=== PATIENT | male | born 1985 ===

== ENCOUNTER 2018-10-22 16:43 | Emergency (ER) | payer MEDICAID ==
[2018-10-22 16:43] VITALS: BMI 27.1
[2018-10-22] MEDS ORDERED: Hydrogen Peroxide 237 ML SOL TP ONE (17:50)
--- NOTE | 2018-10-22 18:08 | ED PDOC ---
HPI: Chest Pain Time Seen by Provider: 10/22/18 17:20 Chief Complaint (Nursing): Chest Pain Chief Complaint (Provider): Chest pain History Per: Patient History/Exam Limitations: no limitations Additional Complaint(s): 33 y/o male, with a history of HIV since , presents to the ER with chest pain. Patient states for the last few months, he has been having frequent chest pain and other viral symptoms. He states, today, pain is in the middle of the chest. Patient reports he woke up with it. He states pain is not associated with palpitations, movement, or deep breaths. He states for the last few days, he has also had congestion and feeling of fullness in the right ear. Patient states he has had multiple ear surgeries as a child. PMD: none provided Past Medical History Reviewed: Historical Data, Nursing Documentation, Vital Signs Primary Care Provider: Kyrie Cruz - Medical History PMH: Anxiety, Bronchitis (5 yrs), Fractures (Jaw 2011 wired), HIV, Hyperlipidemia Denies: Chronic Kidney Disease - Surgical History Other surgeries: Ear surgeries - Family History Family History: States: Unknown Family Hx - Home Medications Home Medications: Ambulatory Orders Medication Instructions Recorded Darunavir [Prezista] 800 mg PO DAILY 06/28/15 Emtricitabine/Tenofovir [Truvada 1 tab PO DAILY 06/28/15 200 mg-300 mg Tablet] Oxycodone HCl/Acetaminophen 1 tab PO Q6 PRN 06/28/15 [Percocet 5-325 mg Tablet] Ritonavir [Norvir] 100 mg PO DAILY 06/28/15 Ciprofloxacin 500 mg PO BID #21 ml 07/02/15 Doxycycline Hyclate 100 mg PO BID #21 cap 07/02/15 Cyclobenzaprine [Cyclobenzaprine 10 mg PO BID #14 tab 10/24/16 HCl] Ibuprofen [Motrin] 400 mg PO Q6 #30 tab 10/24/16 Darunavir [Prezista] 800 mg PO DAILY 12/02/16 Emtricitabine/Tenofovir Diso 1 tab PO DAILY 12/02/16 [Truvada 200 MG-300 MG] Ritonavir [Norvir] 100 mg PO DAILY 12/02/16 Alprazolam [Xanax] 0.5 mg PO PRN PRN 12/03/16 Non-Formulary 1 ea .ROUTE Q6 #1 ea 08/02/17 Acetaminophen/Butalbital/Caf 1 tab PO TID PRN #20 tab 02/24/18 [Fioricet] Ondansetron ODT [Zofran ODT] 1 odt PO Q6 PRN #20 odt 02/24/18 Naproxen [Naprosyn] 500 mg PO BID PRN #20 tablet 03/06/18 Ciprofloxacin HCl [Cipro] 500 mg PO BID 7 Days tab 05/09/18 Ibuprofen [Motrin] 600 mg PO TID 7 Days tab 05/09/18 Metronidazole [Flagyl] 500 mg PO TID 7 Days tablet 05/09/18 Dicyclomine [Bentyl] 20 mg PO Q12 PRN #20 tab 05/16/18 Cyclobenzaprine [Cyclobenzaprine 10 mg PO Q8 PRN 5 Days tab 08/01/18 HCl] Ibuprofen [Motrin Tab] 800 mg PO Q6 PRN 7 Days tab 08/01/18 Methylprednisolone [Medrol Dose 4 mg PO DAILY #21 mg 08/01/18 Pack (21 tabs)] Cetirizine HCl/Pseudoephedrine 1 each PO BID #60 tab.er.12h 10/22/18 [Zyrtec-D Tablet] Fluticasone Nasal [Flonase] 1 actuation NS DAILY #1 spr 10/22/18 - Allergies Allergies/Adverse Reactions: Allergies Allergy/AdvReac Type Severity Reaction Status Date / Time Penicillins Allergy Intermediate ITCHING Verified 10/22/18 16:53 Review of Systems ROS Statement: Except As Marked, All Systems Reviewed And Found Negative ENT: Positive for: Nose Congestion, Other (Fullness in right ear) Cardiovascular: Positive for: Chest Pain. Negative for: Palpitations Respiratory: Negative for: Shortness of Breath Physical Exam - Reviewed Nursing Documentation Reviewed: Yes Vital Signs Reviewed: Yes - Physical Exam Appears: Positive for: No Acute Distress Head Exam: Positive for: ATRAUMATIC, NORMOCEPHALIC Skin: Positive for: Normal Color, Warm, Dry Eye Exam: Positive for: Normal appearance ENT: Positive for: Other (Impacted cerumen in right ear with excoriations to the external ear canal. left ear normal) Neck: Positive for: Normal, Painless ROM Cardiovascular/Chest: Positive for: Regular Rate, Rhythm Respiratory: Positive for: Normal Breath Sounds. Negative for: Wheezing, Respiratory Distress Extremity: Positive for: Normal ROM Neurological/Psych: Positive for: Awake, Alert, Normal Tone - Laboratory Results Result Diagrams: 10/22/18 18:33 10/22/18 18:33 Medical Decision Making Medical Decision Making: Initial Impression: Workup for chest pain with congestion and ear fullness consistent with allergies Initial Plan: --Cardiac workup --Hydrogen peroxide in right ear to break up cerumen --reevaluate patient 18:55 Labs normal and Chest X-ray normal. Scribe Attestation: Documented by Giacomo Tellez acting as a scribe for Elda Brewster MD. Provider Scribe Attestation: All medical record entries made by the Scribe were at my direction and personally dictated by me. I have reviewed the chart and agree that the record accurately reflects my personal performance of the history, physical exam, medical decision making, and the department course for this patient. I have also personally directed, reviewed, and agree with the discharge instructions and disposition. Disposition - Clinical Impression Clinical Impression: Atypical chest pain, Seasonal allergies - Disposition Disposition Time: 18:55 Condition: IMPROVED Prescriptions: Cetirizine HCl/Pseudoephedrine [Zyrtec-D Tablet] 1 each PO BID #60 tab.er.12h Fluticasone Nasal [Flonase] 1 actuation NS DAILY #1 spr Instructions: Seasonal Allergies in Adults, Chest Pain That Is Not Caused by the Heart (DC) Forms: [employer] (Mongolian) Print Language: MOHAWK
[2018-10-22] MEDS ORDERED: Hydrogen Peroxide 3% Soln (480ml) TP ONE (18:21)
--- NOTE | 2018-10-22 18:27 | RAD ---
Date of service: 10/22/2018 HISTORY: cough COMPARISON: 07/31/2018 TECHNIQUE: Chest PA and lateral views FINDINGS: LUNGS: No active pulmonary disease. PLEURA: No significant pleural effusion identified. No pneumothorax apparent. CARDIOVASCULAR: No aortic atherosclerotic calcification present. Normal cardiac size. No pulmonary vascular congestion. OSSEOUS STRUCTURES: No significant abnormalities. VISUALIZED UPPER ABDOMEN: Normal. OTHER FINDINGS: None. IMPRESSION: No active disease. No acute/significant interval changes.
[2018-10-22 18:30] VITALS: RESP 18
[2018-10-22 18:38] LABS: BASO # 0.1 K/uL (0.0-0.2); BASO % 0.9 % (0.0-2.0); EOS # 0.1 K/uL (0.0-0.7); EOS % 1.7 % (0.0-4.0); LYMPH # 1.9 K/uL (1.0-4.3); MEAN CELL VOLUME 88.1 fl (80.0-94.0); MEAN CORPUSCULAR HGB CONC 34.1 g/dL (33.0-37.0); MEAN PLATELET VOLUME 8.3 fl (7.2-11.7); MONO # 0.4 K/uL (0.0-0.8); MONO % 6.7 % (0.0-10.0); NEUT % 61.7 % (50.0-75.0); NRBC % 0.1 % (0.0-0.0); RBC 4.33 Mil/uL (4.40-5.90); RED CELL DISTRIBUTION WIDTH 14.2 % (11.5-14.5); WHITE BLOOD COUNT 6.5 K/uL (4.8-10.8)
[2018-10-22 18:47] LABS: BLOOD UREA NITROGEN 13 mg/dl (9-20); CALCIUM 8.8 mg/dL (8.4-10.2); GFR NON-AFRICAN AMERICAN > 60
[2018-10-22 19:14] VITALS: BP 131/81; PULSE 78; TEMP 98.1; O2SAT 98
== END 2018-10-22 19:20 | disposition home or self-care (01) ==
LOC: H.ER 16:43
DX: R07.89 Other chest pain (principal); J30.2 Other seasonal allergic rhinitis; E78.5 Hyperlipidemia, unspecified; Z21 Asymptomatic human immunodeficiency virus [HIV] infection status
CPT/HCPCS: 71046; 80048; 84484; 85025; 96374; 99283; J1885